=== PATIENT | female | born 1995 | race Caucasian/White ===

== ENCOUNTER 2017-01-10 23:19 | Emergency (ER) | payer BC ==
[2017-01-10 23:47] VITALS: BP 133/86
--- NOTE | 2017-01-11 00:11 | EDM.PDOC ---
ED HPI RENAL/ - General Chief Complaint: Genitourinary Problem Stated Complaint: UTI, right mid abdominal pain Time Seen by Provider: 01/10/17 23:36 Source of Information: Reports: Patient History Limitations: Reports: No limitations - History of Present Illness INITIAL COMMENTS - FREE TEXT/NARRATIVE: Patient has significant history of abdominal pain. She was diagnosed today with UTI at the clinic as well as a yeast infection. No fevers. Did have a transvaginal ultrasound last week at [facility] in [place] and diagnosed with a vaginal infection that she is unable to remember. She is sexually active with her boyfriend of 3 years. Denies prior STI's. States they are monogamous. She states she has right lateral abdominal pain that is sharp and stabbing and radiates to only the midline. No pain on the left side. Urinary urgency and burning. Symptom Onset Date: 01/11/17 Timing/Duration: Reports: Gradual onset Location: Reports: RLQ Quality: Reports: stabbing, other (sharp) Severity: mild Improves with: Reports: lying down Associated Symptoms: Reports: burning, dysuria, frequency, blood in urine - Related Data Allergies/ADRs: Allergies Allergy/AdvReac Type Severity Reaction Status Date / Time cefdinir Allergy Vomiting Verified 01/10/17 23:48 Home Meds: Home Meds Sulfamethoxazole/Trimethoprim [Bactrim 400-80 MG] 1 tab PO BID 01/10/17 [History ] ED ROS GENERAL - Review of Systems Review Of Systems: See Below Constitutional: Reports: no symptoms HEENT: Reports: No symptoms Respiratory: Reports: No Symptoms Cardiovascular: Reports: No symptoms Endocrine: Reports: no symptoms GI/Abdominal: Reports: Abdominal pain : Reports: dysuria, frequency Musculoskeletal: Reports: no symptoms Skin: Reports: no symptoms Neurological: Reports: No Symptoms Psychiatric: Reports: No symptoms Hematologic/Lymphatic: Reports: no symptoms Immunologic: Reports: no symptoms ED EXAM, RENAL/ - Physical Exam Exam: See Below Exam Limited By: No limitations General Appearance: alert, WD/WN, no apparent distress Eye Exam: bilateral eye: EOMI, PERRL Ears: normal TMs Throat/Mouth: Normal inspection, Normal oropharynx Head: atraumatic, normocephalic Neck: normal inspection, supple, non-tender, full range of motion Respiratory/Chest: no respiratory distress, lungs clear, normal breath sounds Cardiovascular: normal peripheral pulses, tachycardia GI/Abdominal: normal bowel sounds, soft, no distention, tender (right lower quad ) Extremities: normal inspection, normal range of motion, normal capillary refill Neurological: alert, oriented, CN II-XII intact, normal cognition, normal gait, normal reflexes, no motor/sensory deficits Psychiatric: normal affect, normal mood Skin Exam: Warm, Dry, Intact Lymphatic: no adenopathy Course - Vital Signs Last Recorded V/S: Last Vital Signs Temp 37.9 C 01/10/17 23:32 Pulse 118 H 01/10/17 23:32 Resp 20 01/10/17 23:32 BP 133/86 01/10/17 23:32 Pulse Ox 100 01/10/17 23:32 - Orders/Labs/Meds Orders: Active Orders 24 hr Category Date Time Status C-REACTIVE PROTEIN [CHEM] Stat Lab 01/10/17 23:48 Ordered CBC WITH AUTO DIFF [HEME] Stat Lab 01/10/17 23:48 Ordered HCG QUALITATIVE,URINE [URCHEM] Stat Lab 01/10/17 23:48 Uncollected LACTIC ACID [CHEM] Stat Lab 01/10/17 23:48 Ordered UA W/MICROSCOPIC [URIN] Stat Lab 01/10/17 23:48 Uncollected Departure - Departure Time of Disposition: 01:13 Disposition: Home, Self-Care 01 Condition: good Clinical Impression: UTI, Urinary tract infectious disease, Pyelonephritis Instructions: Urinary Tract Infection, Adult, [id number] Forms: ED Department Discharge Additional Instructions: You are most likely experiencing continued symptoms from your UTI. Continue to take your antibiotics as prescribed and finish them all even if you are feeling better. If you have any additional questions or concerns you can call the Ed. Follow up with your primary doctor as needed for symptom management. - Problem List & Annotations (1) Pyelonephritis SNOMED Code(s): 77962677 Code(s): N12 - TUBULO-INTERSTITIAL NEPHRITIS, NOT SPCF ACUTE OR CHRONIC Status: Acute Priority: Low Current Visit: Yes (2) UTI, Urinary tract infectious disease SNOMED Code(s): 98806435 Code(s): N39.0 - URINARY TRACT INFECTION, SITE NOT SPECIFIED Status: Acute Priority: Low Current Visit: Yes - Problem List Review Problem List Initiated/Reviewed/Updated: Yes - My Orders Last 24 Hours: My Active Orders 01/10/17 23:48 C-REACTIVE PROTEIN [CHEM] Stat CBC WITH AUTO DIFF [HEME] Stat HCG QUALITATIVE,URINE [URCHEM] Stat LACTIC ACID [CHEM] Stat UA W/MICROSCOPIC [URIN] Stat - Assessment/Plan Last 24 Hours: My Active Orders 01/10/17 23:48 C-REACTIVE PROTEIN [CHEM] Stat CBC WITH AUTO DIFF [HEME] Stat HCG QUALITATIVE,URINE [URCHEM] Stat LACTIC ACID [CHEM] Stat UA W/MICROSCOPIC [URIN] Stat Assessment:: UTI Pyelonephritis Plan: You are most likely experiencing continued symptoms from your UTI. Continue to take your antibiotics as prescribed and finish them all even if you are feeling better. If you have any additional questions or concerns you can call the Ed. Follow up with your primary doctor as needed for symptom management.
[2017-01-11] MEDS ORDERED: Ondansetron 4 MG Tab.DIS PO ONE (00:37)
[2017-01-11] MEDS ORDERED: cefTRIAXone 1 GM, Lidocaine 1% 2.1 ML IM ONE ×2 (00:40)
[2017-01-11] MEDS ORDERED: cefTRIAXone 1 GM Vial ONE (00:55)
== END 2017-01-11 01:33 | disposition home or self-care (01) ==
LOC: VM.ED 23:19
DX: N39.0 Urinary tract infection, site not specified (principal); N12 Tubulo-interstitial nephritis, not specified as acute or chronic; Z88.1 Allergy status to other antibiotic agents
CPT/HCPCS: 36415; 81001; 81025; 83605; 85025; 86140; 96372; 99284; A9270; J0696